=== PATIENT | male | born 1955 | race Caucasian/White ===

== ENCOUNTER 2020-06-29 09:36 | Outpatient (CLI) | payer MEDICARE ==
--- NOTE | 2020-06-29 10:28 | RAD ---
EXAM: Single view of the abdomen HISTORY: Foreign body in intestine. Looking for a camera COMPARISON: None FINDINGS: Single view of the abdomen shows a nonspecific, nonobstructive bowel gas pattern. No radiop aque foreign body is seen in the bowel. No suspicious calcifications are seen. The patient has had bilateral hip arthroplasties. IMPRESSION: No camera identified within the bowel.
== END 2020-06-29 09:37 | disposition home or self-care (01) ==
LOC: BICRAD 09:36
PROVIDERS: ATTEND Internal Medicine
DX: T18.9XXA Foreign body of alimentary tract, part unspecified, initial encounter (principal)
CPT/HCPCS: 74018

== ENCOUNTER 2023-01-01 20:26 | Observation (INO) | payer OTHER, MEDICAID ==
[~2023-01-01 20:26] MED LIST: Iopamidol-370 76% 500 ML MDV (1 ML CHARGE) ONE
[2023-01-01 20:45] LABS: #Basophils 0.1 thou/uL (0.0-0.2); #Eosinphils 0.2 thou/uL (0.0-0.7); #Lymphocytes 1.9 thou/uL (1.20-3.40); #Monocytes 0.7 thou/uL (0.11-0.59); #Neutrophils 2.6 thou/uL (1.40-6.50); %Basophils 1.4 % (0.0-1.0); %Eosinophils 3.4 % (0.0-10.0); %Lymphocytes 34.9 % (21.0-51.0); %Monocytes 12.1 % (0.0-10.0); %Neutrophils 48.2 % (42.0-75.0); Hemoglobin 15.4 g/dL (14.0-18.0); Mean Corpuscular Hemoglobin 30.8 pg (27.0-31.0); Mean Platelet Volume 6.7 fL (7.4-10.4); Platelet Count 320 10x3/uL (130-400); RBC Distribution Width 13.5 % (11.5-14.5); Red Blood Cell (RBC) Count 4.98 mill/uL (4.70-6.10); White Blood Cell (WBC) Count 5.4 10x3/uL (4.8-10.8)
[2023-01-01 21:05] LABS: ALT (SGPT) Less than 7 U/L (8-55); AST (SGOT) 18 U/L (5-34); Albumin 4.2 g/dL (3.4-4.8); Alkaline Phosphatase 100 U/L (40-110); Anion Gap 17 mmol/L (10-20); BUN (Urea Nitrogen) 5 mg/dL (8.4-25.7); Bilirubin, Total 0.2 mg/dL (0.2-1.2); CK (CPK) 64 U/L (30-200); Calc. Creatinine Clearance 0 mL/min (70-130); Calcium 8.9 mg/dL (7.8-10.44); Carbon Dioxide 24 mmol/L (23-31); Chloride 98 mmol/L (98-107); Estimated GFR 99; Globulin 3.3 g/dL (2.4-3.5); Glucose 99 mg/dL (80-115); PTT 29.7 sec (22.9-36.1); Potassium 3.5 mmol/L (3.5-5.1); Protein, Total 7.5 g/dL (5.8-8.1); Prothrombin Time 13.3 sec (12.0-14.7); Sodium 135 mmol/L (136-145)
[2023-01-01] MEDS ORDERED: Ondansetron PF 4 MG/2 ML Vial IVP PRN (23:06)
[2023-01-01] MEDS ORDERED: Acetaminophen 325 MG TAB PO PRN (23:06)
[2023-01-02 06:57] VITALS: BMI 19.5
[2023-01-02 07:19] LABS: #Basophils 0.1 thou/uL (0.0-0.2); #Eosinphils 0.2 thou/uL (0.0-0.7); #Lymphocytes 1.9 thou/uL (1.20-3.40); #Monocytes 0.6 thou/uL (0.11-0.59); #Neutrophils 3.7 thou/uL (1.40-6.50); %Basophils 1.1 % (0.0-1.0); %Eosinophils 2.7 % (0.0-10.0); %Lymphocytes 30.2 % (21.0-51.0); %Monocytes 9.1 % (0.0-10.0); %Neutrophils 56.8 % (42.0-75.0); Mean Corpuscular HGB CONC 35.4 g/dL (32.0-36.0); Mean Corpuscular Hemoglobin 31.6 pg (27.0-31.0); Mean Corpuscular Volume 89.2 fl (78.0-98.0); Mean Platelet Volume 6.9 fL (7.4-10.4); Platelet Count 300 10x3/uL (130-400); RBC Distribution Width 13.5 % (11.5-14.5); Red Blood Cell (RBC) Count 5.06 mill/uL (4.70-6.10); White Blood Cell (WBC) Count 6.4 10x3/uL (4.8-10.8)
[2023-01-02 07:29] LABS: Hemoglobin A1c 4.8 % (4.0-6.0)
[2023-01-02 07:48] LABS: Anion Gap 16 mmol/L (10-20); BUN (Urea Nitrogen) 5 mg/dL (8.4-25.7); Calc. Creatinine Clearance 60 mL/min (70-130); Calcium 9.1 mg/dL (7.8-10.44); Carbon Dioxide 20 mmol/L (23-31); Cardiac Risk 4.8 (Less than 4.5); Chloride 102 mmol/L (98-107); Cholesterol 248 mg/dl (< 200 Desired); Estimated GFR 101; Glucose 85 mg/dL (80-115); HDL Cholesterol 52 mg/dL (>60 Neg Risk); LDL Cholesterol, Calculated 176 mg/dL; Potassium 3.7 mmol/L (3.5-5.1); Sodium 134 mmol/L (136-145); Triglycerides 101 mg/dL (Less than 150)
[2023-01-02] MEDS: Aspirin 81 mg Enteric Coated Tablet PO SCH (09:07)
[2023-01-02] MEDS ORDERED: Diazepam 5 MG TAB PO PRN (10:23)
[2023-01-02] MEDS ORDERED: Acetaminophen/Codeine 30-300mg Tablet PO PRN (10:23)
[2023-01-02] MEDS ORDERED: Docusate 100 MG CAP PO PRN (10:23)
[2023-01-02] MEDS: Ferrous Sulfate 325 MG TAB PO SCH (16:09)
[2023-01-02] MEDS: traMADol HCl 50 MG TAB PO SCH ×2 (16:09→21:01)
[2023-01-02] MEDS ORDERED: Amlodipine 5 MG TAB PO SCH (21:00)
[2023-01-02] MEDS ORDERED: Atorvastatin Calcium 40 MG TAB PO SCH (21:00)
[2023-01-03 06:08] LABS: #Basophils 0.1 thou/uL (0.0-0.2); #Eosinphils 0.2 thou/uL (0.0-0.7); #Lymphocytes 2.3 thou/uL (1.20-3.40); #Monocytes 0.6 thou/uL (0.11-0.59); #Neutrophils 2.8 thou/uL (1.40-6.50); %Basophils 1.6 % (0.0-1.0); %Eosinophils 4.1 % (0.0-10.0); %Lymphocytes 38.8 % (21.0-51.0); %Monocytes 9.4 % (0.0-10.0); %Neutrophils 46.2 % (42.0-75.0); Hemoglobin 14.8 g/dL (14.0-18.0); Mean Corpuscular HGB CONC 34.8 g/dL (32.0-36.0); Mean Corpuscular Hemoglobin 31.2 pg (27.0-31.0); Mean Corpuscular Volume 89.8 fl (78.0-98.0); Platelet Count 296 10x3/uL (130-400); RBC Distribution Width 13.4 % (11.5-14.5); Red Blood Cell (RBC) Count 4.74 mill/uL (4.70-6.10); White Blood Cell (WBC) Count 6.1 10x3/uL (4.8-10.8)
[2023-01-03 06:28] LABS: Anion Gap 15 mmol/L (10-20); BUN (Urea Nitrogen) 8 mg/dL (8.4-25.7); Calc. Creatinine Clearance 63 mL/min (70-130); Calcium 8.9 mg/dL (7.8-10.44); Carbon Dioxide 21 mmol/L (23-31); Chloride 102 mmol/L (98-107); Estimated GFR 103; Glucose 82 mg/dL (80-115); Potassium 3.5 mmol/L (3.5-5.1); Sodium 134 mmol/L (136-145)
[2023-01-03] MEDS: traMADol HCl 50 MG TAB PO SCH ×2 (08:50→16:05)
[2023-01-03] MEDS: Aspirin 81 mg Enteric Coated Tablet PO SCH (08:52)
[2023-01-03] MEDS: Ferrous Sulfate 325 MG TAB PO SCH (08:52)
[2023-01-03] MEDS ORDERED: CeleCOXIB 100 MG CAP PO SCH (09:00)
[2023-01-03] MEDS ORDERED: Tamsulosin HCl 0.4 MG CAP PO SCH (09:00)
[2023-01-03] MEDS ORDERED: Atenolol 50 MG TAB PO SCH (09:00)
[2023-01-03 11:54] VITALS: TEMP 98.2
[2023-01-03 16:40] VITALS: BP 143/79
[2023-01-03] MEDS ORDERED: Atorvastatin Calcium 40 MG TAB PO SCH (21:00)
== END 2023-01-03 18:24 | disposition home health service (06) ==
LOC: ERS 20:26 → ERHOLD 22:21 → NEURO 01-02 06:29
PROVIDERS: ADMIT Internal Medicine; ATTEND Internal Medicine
DX: R29.810 Facial weakness (principal); R47.81 Slurred speech; R29.898 Other symptoms and signs involving the musculoskeletal system; I10 Essential (primary) hypertension; M06.9 Rheumatoid arthritis, unspecified; I73.9 Peripheral vascular disease, unspecified; Z79.82 Long term (current) use of aspirin; Z88.1 Allergy status to other antibiotic agents; Z88.8 Allergy status to other drugs, medicaments and biological substances; Z79.899 Other long term (current) drug therapy
CPT/HCPCS: 36415; 70450; 70496; 70498; 80048; 80053; 80061; 82550; 83036; 84484; 85025; 85610; 85730; 93005; 93306; 96372; G0378; J1650; Q9967

== ENCOUNTER 2024-01-30 16:30 | Emergency (ER) | payer OTHER ==
[2024-01-30 16:55] LABS: #Basophils 0.05 10x3/uL (0.0-0.2); %Basophils 0.7 % (0.0-1.0); %Eosinophils 1.7 % (0.0-10.0); %Lymphocytes 34.7 % (21.0-51.0); %Monocytes 10.1 % (0.0-10.0); %Neutrophils 52.5 % (42.0-75.0); Hematocrit 36.5 % (42.0-52.0); Mean Corpuscular HGB CONC 32.9 g/dL (32.0-36.0); Mean Corpuscular Hemoglobin 29.8 pg (27.0-31.0); Mean Corpuscular Volume 90.6 fL (78.0-98.0); Mean Platelet Volume 9.6 fL (7.4-10.4); Platelet Count 248 10x3/uL (130-400); RBC Distribution Width 15.6 % (11.5-14.5); Red Blood Cell (RBC) Count 4.03 mill/uL (4.70-6.10)
[2024-01-30 17:13] LABS: ALT (SGPT) 16 U/L (8-55); AST (SGOT) 21 U/L (5-34); Albumin 3.4 g/dL (3.4-4.8); Alkaline Phosphatase 130 U/L (40-110); Anion Gap 13 mmol/L (10-20); BUN (Urea Nitrogen) 10 mg/dL (8.4-25.7); Bilirubin, Total 0.5 mg/dL (0.2-1.2); Calc. Creatinine Clearance 0 mL/min (70-130); Calcium 9.5 mg/dL (7.8-10.44); Carbon Dioxide 21 mmol/L (23-31); Chloride 102 mmol/L (98-107); Estimated GFR 98; Globulin 3.8 g/dL (2.4-3.5); Glucose 96 mg/dL (80-115); Potassium 4.3 mmol/L (3.5-5.1); Protein, Total 7.2 g/dL (5.8-8.1); Sodium 132 mmol/L (136-145)
[2024-01-30 17:18] LABS: Troponin I Less than 0.010 ng/mL (< 0.028)
[2024-01-30 17:56] LABS: Bacteria/HPF 2+ HPF (None Seen); Bilirubin Negative (Negative); Blood, Urine Trace (Negative); CAUTI Indications for Culture Alt mental st,lethar; Clarity Turbid (Clear); Glucose, Urine (Dipstick) Normal (Negative); Ketone, Urine Negative (Negative); Leukocyte 500 Leu/uL (Negative); Nitrite Negative (Negative); Protein, Urine (Dipstick) Negative (Neg-Trace); RBC/HPF 0-3 HPF (0-3); Specific Gravity, Urine 1.006 (1.002-1.036); Squamous Epithelial 0-3 HPF (0-3); Urobilinogen Normal mg/dL (Less than 2); pH, Urine 7.5 (5.0-9.0)
[2024-01-30 17:58] LABS: WBC/HPF 21-50 HPF (0-3)
[2024-01-30 17:59] LABS: Urine Culture Reflex Yes Yes
[2024-01-30 19:06] LABS: Prothrombin Time 13.4 sec (12.0-14.7)
[2024-01-30 19:07] LABS: PTT 31.2 sec (22.9-36.1)
== END 2024-01-30 22:53 ==
LOC: ERS 16:30
DX: R53.1 Weakness (principal); N39.0 Urinary tract infection, site not specified; I10 Essential (primary) hypertension; F17.210 Nicotine dependence, cigarettes, uncomplicated; Z55.6 Problems related to health literacy; Z86.73 Personal history of transient ischemic attack (TIA), and cerebral infarction without residual deficits; R07.9 Chest pain, unspecified
CPT/HCPCS: 36415; 70450; 71045; 80053; 81001; 84484; 85025; 85610; 85730; 87086; 93005